=== PATIENT | male | born 1950 | race Caucasian/White ===

== ENCOUNTER 2019-07-30 05:57 | Inpatient (IN) | payer BC ==
[2019-07-22 16:57] VITALS: BMI 33.4
[2019-07-30] MEDS ORDERED: VANCOMYCIN 1,000 MG in DEXTROSE 5%-WATER - 250 ML IVPB ONE (06:32)
[2019-07-30] MEDS ORDERED: TRANEXAMIC ACID 1000 MG/10 ML VIAL IVPUSH ONE (06:32)
[2019-07-30] MEDS ORDERED: CEFAZOLIN 2 GM in DEXTROSE 5%-WATER - 50 ML IVPB ONE (06:32)
[2019-07-30] MEDS ORDERED: BUPIVACAINE HCL/PF 0.5% (5 MG/ML) 30 ML VIAL IJ ONE (07:05)
[2019-07-30] MEDS ORDERED: MIDAZOLAM HCL 2 MG/2 ML SINGLE DOSE VIAL ONE ×2 (07:05→09:05)
--- NOTE | 2019-07-30 07:50 | HP ---
History & Physical Update - History History: No Change - Physical Physical: No Change - Assessment Assessment: No Change - Plan Plan: No Change
[2019-07-30] MEDS ORDERED: PROPOFOL 20 ML ONE ×5 (09:05→12:07)
[2019-07-30] MEDS ORDERED: SUCCINYLCHOLINE CHLORIDE 200 MG/10 ML SYRINGE ONE (09:05)
[2019-07-30] MEDS ORDERED: BUPIVACAINE HCL/PF 0.5% (5MG/ML) 10 ML VIAL ONE (09:06)
[2019-07-30] MEDS ORDERED: ePHEDrine SULFATE 50 MG/1 ML AMPULE ONE (09:21)
[2019-07-30] MEDS ORDERED: METOPROLOL TARTRATE 5 MG/5 ML VIAL ONE (10:38)
[2019-07-30] MEDS ORDERED: ceFAZolin SODIUM 1 GM VIAL ONE (11:44)
[2019-07-30] MEDS ORDERED: BENZOIN TINCTURE SWABSTICK TP ONE (12:25)
--- NOTE | 2019-07-30 12:50 | PN ---
Progress Note (short form) - Note Progress Note: 69M s/p RIGHT total hip replacement POD #0. -Pain control: per anaesthesia team. -DVT PPx: -Chemical: ASA 81mg PO BID x 6 weeks. -Mechanical: SHARAD's, SCD's. -Incentive spirometry q15 min. -PT/OT/Rehab, OOB. -WBAT RLE. -Post-op Ancef x 3 doses. -f/u post-op TOV: 8 hours max. -f/u AM labs. -Diet as tolerated. -Care per medical hospitalist team. -Right hip precautions. -Discharge planning: f/u [facility] [place] [facility] 08/07/2019; call for appointment . -Will follow. Mina Sheppard MD (Orthopaedic Surgery).
--- NOTE | 2019-07-30 12:56 | OP ---
Operative Note - Note: Operative Date: 07/30/19 Pre-Operative Diagnosis: 1. Right hip osteoarthritis. 2. Right hip arthrofibrosis Operation: Right total hip replacement Findings: Extensive kevin-acetabular osteophyte formation Implants: [place]. Cup - Trident II-Triathlon, 48mm. Poly - 32mm, neutral. Stem - Accolade II, 127 deg NSA, #7. Head - 32mm diameter, -4mm length Biolox Delta Ceramic Surgeon: Mina Sheppard Senior Sql Server Dba: Rajwinder Macedo Anesthesiologist/VP DELIVERY: Nir Perez Anesthesia: Spinal Specimens Removed: Right femoral head, osteophytes Estimated Blood Loss (mls): 250 Fluid Volume Replaced (mls): 1,000 Operative Report Dictated: Yes
[2019-07-30] MEDS ORDERED: MAGNESIUM HYDROX 2400MG/30ML ORAL SUSPENSION 30 ML CUP PO PRN (13:02)
[2019-07-30] MEDS ORDERED: MAG HYDROX/AL HYDROX/SIMETH 30 ML UNIT-DOSE CUP PO PRN (13:02)
[2019-07-30] MEDS ORDERED: ONDANSETRON 4 MG/2 ML VIAL IVPUSH PRN ×2 (13:02→13:26)
[2019-07-30] MEDS ORDERED: PROMETHAZINE HCL 25 MG/1 ML VIAL IVPUSH PRN (13:26)
[2019-07-30] MEDS ORDERED: oxyCODONE HCL 5 MG TABLET PO PRN (13:26)
[2019-07-30] MEDS: oxyCODONE HCL 5 MG TABLET PO PRN ×2 (14:05→18:21)
--- NOTE | 2019-07-30 15:25 | OP ---
Date of Operation: 07/30/2019 Surgeon: Mina Sheppard M.D. Speech Instructor: Howie Sheppard M.D., Rajwinder Macedo P.A.-C. Pre-Operative Diagnosis: Primary osteoarthritis right hip. Post-Operative Diagnosis: 1. Primary osteoarthritis right hip, 2. Arthrofibrosis right hip. Surgical Procedure: Right total hip replacement via Direct Suprior approach. Findings: None. Anaesthesia: Spinal, block. Position: Left lateral decubitus. Incision: Direct superior. Estimated Blood Loss: 250cc. Intravenous Fluid: 1.6L crystalloid. Specimens: Right femoral head. Drains: None. Complications: None. Urine output: None. Bacteriology: None. Transfusions: None. Closure: #1 Vicryl, 2-0 Biosyn. Indications: The patient was indicated for a right total hip replacement in order to facilitate improved motion and mobilization, and to prevent the complications associated with a sedentary lifestyle. The patient was identified in the holding area by his armband. A long discussion was held with the patient (in the presence of the patients family) regarding the risks, benefits and alternatives of the above named procedure. Risks include but are not limited to: pain, bleeding, infection, damage to surrounding structures (including nerves, blood vessels, skin, ligaments, tendons and bone), wound complications, failure of hardware/implants/reduction, need for further surgery, blood clots, myocardial infarction, pulmonary embolism , cerebrovascular insult, anaesthesia complications, compartment syndrome, limb loss, limp, loss of function, and . Benefits as mentioned above. Alternatives include no surgery. All questions were answered. The patient understood and agreed to the procedure. Informed consent was obtained, witnessed and verified. The patients correct operative limb - that is the right lower extremity - was marked, and the patient was taken to the operating room after being seen by the anesthesia and nursing staff. Procedure: The patient was brought into the operating room, placed on the OR table and secured with a safety strap. Consent and the operative site were again verified with the patient and nursing and anaesthesia staff. Anaesthesia, IV antibiotics, and TXA were then administered without complication. A time out was done, led by me the attending surgeon. A pre-operative orthpaedic exam revealed 30 degree bilateral flexion contractures of both hips with bilateral external rotation deformities of both hips. The patient was gently turned into the left lateral decubitus position. An axillary roll was not utilized due to patient discomfort when placed. A Stulberg hip positioner with well-padded bolsters was used to secure the patient in the lateral decubitus position. The down arm was placed on a well-padded arm board. The up arm was brought across the patients body and placed on 2 pillows. Foam egg crates were placed under the down knee and ankle, and bony prominences were well padded. The operative site was then prepped and draped in the standard sterile fashion. Time out was again done and the case began. Operation: A standard Direct Superior surgical approach was utilized to access the hip joint. With a #10 blade, a skin incision was taken from the posterior-superior corner of the greater trochanter in a posterior-superior direction. This was approximately 12cm in length. Electrocautery was utilized to carry the deep dissection down to the level of the gluteus dawn fascia. Hemostasis was assured using electrocautery (bipolar and unipolar). The gluteus dawn fascia was incised, and the fibers of gluteus dawn were in line with the trajectory of the incision. This confirmed the accuracy of our planned incision based on palpated landmarks and surface anatomy. A Campuzano elevator was used to split the distal fibers of gluteus dawn, in line with the fibers, just proximal to their insertion into the iliotibial band. Great care was taken not to incise the iliotibial band. Gluteus dawn fibers were split proximally using the Campuzano elevator until reaching the apex of the wound. Again, hemostasis was assured. The kevin-capsular fat pad was exposed utilizing curved handle bar retractors. The kevin-capsular fat pad was excised off the inferior border of the gluteus medius muscle belly, exposing the insertion of the hip short external rotator muscle group. The piriformis and obturator internus tendons were conjoined and, once identified, freed from adhesions to the capsule using a 90-degree clamp. This conjoined tendon was then released from its insertion using electrocautery. The tendon was tagged with a #2 Fiberwire suture and tied to the inferior aspect of the proximal wound apex. The tendon, thus, served as a sling to safely retract and protect the sciatic nerve. With the conjoined tendon reflected away from its insertion, the hip joint capsule was visualized. Electrocautery was used to perform a capsulotomy and synovial joint fluid was aspirated. Next, the superior leaflet of the capsule was elevated using a Campuzano elevator to create separation from the underlying labrum and also to create a plane for later placement of a supra-acetabular retractor. The labrum was excised using electrocautery. The hip was then gently dislocated. A standard femoral neck cut was made using an oscillating saw. A Steinmann pin was delivered into the femoral head using a power drill and the femoral head was then removed. Anterior, inferior, and supra-acetabular retractors were placed to expose the acetabulum. The pulvinar was fibrosed and calcified, entirely consuming the space of the cotyloid fossa. Hemispherical basket reamers were used to prepare the acetabular bone bed. Healthy blushes of bleeding were observed from the reamed cancellous bone bed. Next, a size 48mm Vidhya Trident-II Tritanium cup was impacted into position, achieving excellent press-fit. A size 32mm neutral polyethylene liner was then impacted into the cup. Excellent placement of the polyethylene liner, and excellent press fit of the cup were confirmed. Next, attention was turned to femoral preparation. The anterior and supra-acetabular retractors were removed. The cut femoral neck was then exposed using the inferior acetabular retractor around the calcar, and a straight 90-degree retractor to retract gluteus medius. The box-cutter osteotome was used with a mallet to removed bone from the lateral femoral neck. An opening reamer was delivered by hand to find the femoral canal. A lateralizing reamer was used with power to lateralize the proximal entry into the canal, so as to avoid placing the stem into varus. The femoral bone bed was then prepared using broaches with gentle mallet strikes. The tibia was used as a goniometer with which to dial in approximately 5 degrees of stem anteversion. Trial components were assembled and the hip was reduced. The hip was taken through a full range of motion and proved stable throughout this range of motion, including at the extremes of positions of compromise. All trial femoral components were removed. Another 1g of IV Ancef was administered so that the bone bed would be rich with antibiotic at the time of seating of the femoral implant. A [place] Accolade II (127-degree NSA, high offset) #7 stem was then implanted using gentle mallet strikes, diligently matching the prepared degree of stem anteversion. With the stem fully seated, a 32mm diameter, -4mm length Biolox delta ceramic femoral head was then selected and implanted. The hip was once again reduced, and taken through a full range of motion. Stability was once again assured. Leg length was satisfactory. The wounds were copiously irrigated, as they had been regularly throughout the case so as to keep the retracted tissues wet, and in order to flush out wound debris. The capsule was primarily repaired using #1 Vicryl sutures in simple interrupted fashion. The tagged piriformis tendon was released and tied to the posterior-lateral corner of the greater trochanter. The remaining wound was again irrigated. Hemostasis was assured and the wound was closed primarily using #1 Vicryl sutures. A 2-0 Biosyn suture was used to perform a subcuticular wound closure. A sterile, compressive dressing was applied. The sponge and needle counts were correct at the end of the case and the attending was present and scrubbed throughout the case. The patient was then transferred into a supine position and onto the hospital bed. A standard AP-pelvis x-ray was taken, demonstrating good overall alignment with a well reduced, congruent hip. There was no evidence of subsidence, loosening, or kevin-prosthetic fracture. The patient was then was then transferred to the recovery room without incident/ complications and in stable condition, having tolerated the procedure well. MD BENI [id number] MTDD
[2019-07-30] MEDS: LACTATED RINGERS SOLUTION 1,000 ML IV SCH (16:05)
--- NOTE | 2019-07-30 17:02 | HP ---
CHIEF COMPLAINT: Right hip pain Surgeon: Dr. Sheppard HISTORY OF PRESENT ILLNESS: 69 year-old male with a PMH significant for HTN, HLD, BPH, and right hip OA now s/p right total hip replacement earlier today with Dr. Sheppard. 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 Acidophilus/Pectin, [place] 1 each PO HS 07/22/19 [Acidophilus Probiotic Capsule] Losartan Potassium 100 mg PO DAILY 07/22/19 Multivitamin [Multiple Vitamins] 1 each PO DAILY 07/22/19 Tamsulosin HCl 0.4 mg PO HS 07/22/19 Ubidecarenone [Co Q-10] 100 mg PO HS 07/22/19 Vitamin B Complex/Folic Acid 0.4 mg PO BID 07/30/19 [Super B Maxi Complex Caplet] REVIEW OF SYSTEMS CONSTITUTIONAL: Absent: fever, chills, diaphoresis, generalized weakness, malaise, loss of appetite, weight change HEENT: Absent: rhinorrhea, nasal congestion, throat pain, throat swelling, difficulty swallowing, mouth swelling, ear pain, eye pain, visual changes CARDIOVASCULAR: Absent: chest pain, syncope, palpitations, irregular heart rate, lightheadedness , peripheral edema RESPIRATORY: Absent: cough, shortness of breath, dyspnea with exertion, orthopnea, wheezing, stridor, hemoptysis GASTROINTESTINAL: Absent: abdominal pain, abdominal distension, nausea, vomiting, diarrhea, constipation, melena, hematochezia GENITOURINARY: Absent: dysuria, frequency, urgency, hesitancy, hematuria, flank pain, genital pain MUSCULOSKELETAL: Absent: myalgia, arthralgia, joint swelling, back pain, neck pain SKIN: Absent: rash, itching, pallor HEMATOLOGIC/IMMUNOLOGIC: Absent: easy bleeding, easy bruising, lymphadenopathy, frequent infections ENDOCRINE: Absent: unexplained weight gain, unexplained weight loss, heat intolerance, cold intolerance NEUROLOGIC: Absent: headache, focal weakness or paresthesias, dizziness, unsteady gait, seizure, mental status changes, bladder or bowel incontinence PSYCHIATRIC: Absent: anxiety, depression, suicidal or homicidal ideation, hallucinations. PHYSICAL EXAMINATION Vital Signs - 24 hr 07/30/19 07/30/19 07/30/19 06:57 13:18 13:20 Temperature 97.9 F 97.6 F Pulse Rate 77 99 H 92 H Respiratory 18 13 13 Rate Blood Pressure 131/74 108/63 100/58 L O2 Sat by Pulse 99 99 Oximetry (%) 07/30/19 07/30/19 07/30/19 13:25 13:30 13:45 Temperature 97.6 F Pulse Rate 94 H 94 H 98 H Respiratory 15 15 15 Rate Blood Pressure 111/56 L 111/56 L 113/78 O2 Sat by Pulse 99 99 99 Oximetry (%) 07/30/19 07/30/19 07/30/19 14:00 14:15 14:16 Temperature Pulse Rate 89 89 89 Respiratory 15 15 15 Rate Blood Pressure 110/68 113/68 113/68 O2 Sat by Pulse 99 99 99 Oximetry (%) 07/30/19 15:02 Temperature 97.4 F L Pulse Rate 90 Respiratory 16 Rate Blood Pressure 126/72 O2 Sat by Pulse 100 Oximetry (%) GENERAL: Awake, alert, and fully oriented, in no acute distress. HEAD: Normal with no signs of trauma. EYES: Pupils equal, round and reactive to light, extraocular movements intact, sclera anicteric, conjunctiva clear. No lid lag. LUNGS: Breath sounds equal, clear to auscultation bilaterally. No wheezes, and no crackles. No accessory muscle use. HEART: Regular rate and rhythm, S1 and S2 ABDOMEN: Soft, nontender, not distended, UPPER EXTREMITIES: 2+ pulses, warm, well-perfused. No cyanosis. No clubbing. No peripheral edema. LOWER EXTREMITIES: 2+ pulses, warm, well-perfused. No calf tenderness. No peripheral edema; RLE/RIGHT HIP surgical dressing c/d/i, no surrounding erythema, warmth, or fluctuance, +flex/extend toes, sensory intact NEUROLOGICAL: Cranial nerves II-XII intact. Normal speech. SKIN: Warm, dry, normal turgor, no rashes or lesions noted, normal capillary refill. Current Medications Generic Name Dose Route Start Last Admin Trade Name Freq PRN Reason Stop Dose Admin Acetaminophen 1,000 mg 08/01/19 00:00 Ofirmev Injection - IVPB 08/01/19 18:01 Q6H NAY Al Hydroxide/Mg Hydroxide 30 ml 07/30/19 13:02 Mylanta Oral Suspension - PO Q4H PRN DYSPEPSIA Aspirin 81 mg 07/30/19 22:00 07/30/19 21:34 Asa - PO 81 mg BID NAY Administration Cefazolin Sodium/Dextrose 2 gm 07/31/19 20:00 Ancef 2 Gm Premixed Ivpb - IVPB 08/01/19 08:01 Q6H [facility] Fentanyl 50 mcg 07/31/19 17:35 Sublimaze Injection - IVPUSH [id number] PRN PAIN-PACU ORDER X 4 DOSES ONLY Gabapentin 300 mg 07/31/19 22:00 Neurontin - PO TID NAY Lactated Ringer's 1,000 mls @ 125 mls/hr 07/30/19 13:15 07/30/19 16:05 Lactated Ringers Solution IV Not Given ASDIR NAY Lactobacillus Acidophilus 1 tab 07/30/19 22:00 07/30/19 21:36 Bacid - PO 1 tab HS [facility] Administration Losartan Potassium 100 mg 07/31/19 10:00 07/31/19 10:23 Cozaar - PO 100 mg DAILY NAY Administration Magnesium Hydroxide 30 ml 07/30/19 13:02 Milk Of Magnesia - PO PRN PRN CONSTIPATION Ondansetron HCl 4 mg 07/30/19 13:02 Zofran Injection IVPUSH Q6H PRN NAUSEA Oxycodone HCl 5 mg 07/30/19 13:26 07/31/19 10:23 Roxicodone - PO 5 mg Q3H PRN Administration PAIN LEVEL 1-5 Oxycodone HCl 10 mg 07/30/19 13:26 07/31/19 06:04 Roxicodone - PO 10 mg Q3H PRN Administration PAIN LEVEL 6-10 Oxycodone HCl 10 mg 07/30/19 22:00 07/31/19 10:23 Oxycontin - PO 08/02/19 13:26 10 mg BID NAY Administration Oxycodone HCl 5 mg 07/31/19 17:37 Roxicodone - PO Q3H PRN PAIN LEVEL 1-5 Oxycodone HCl 10 mg 07/31/19 17:37 Roxicodone - PO Q3H PRN PAIN LEVEL 6-10 Oxycodone HCl 10 mg 07/31/19 22:00 Oxycontin - PO 08/03/19 17:37 BID NAY Pantoprazole Sodium 40 mg 07/31/19 10:00 Protonix - PO DAILY NAY Senna/Docusate Sodium 2 tablet 07/30/19 22:00 07/30/19 21:35 Pericolace - PO 2 tablet BID NAY Administration Tamsulosin HCl 0.4 mg 07/30/19 22:00 07/30/19 21:35 Flomax - PO 0.4 mg HS NAY Administration Pre op Hgb 13.1 BUN 15 Cr 1.0 Intra op EBL 250cc Crystalloid 1,000cc cefazolin, Vanc Assessment & Plan 69 year-old male with a PMH significant for HTN, HLD, BPH, and right hip OA now s/p right total hip replacement earlier today with Dr. Sheppard. --POD #0 --perioperative antibiotics per surgery --pain management per surgery --ASA 81mg BID --protonix --bowel regimen --incentive spirometry --voiding freely post-op Hypertension --continue losartan Hyperlipidemia --not on statin therapy BPH --continue tamsulosin FEN Fluids: LR@125mL/hr Electrolytes: replete as indicated Nutrition: regular diet DVT prophylaxis: OOB, ambulation, SCDs, TEDs, ASA 81mg BID for 6 weeks Physical therapy Dispo: continues to require inpatient care. Full code. Visit type - Emergency Visit Emergency Visit: No - New Patient This patient is new to me today: Yes Date on this admission: 08/01/19 - Critical Care Critical Care patient: No
[2019-07-30] MEDS: CEFAZOLIN 2 GM/D5W 2 GM/50 ML ML IVPB SCH (18:21)
[2019-07-30] MEDS: ASPIRIN 81 MG CHEWABLE TABLETS PO SCH (21:34)
[2019-07-30] MEDS: SENNOSIDES/DOCUSATE COMBO (SENNA PLUS) TABLET (UD) PO SCH (21:35)
[2019-07-30] MEDS: TAMSULOSIN HCL 0.4 MG CAP PO SCH (21:35)
[2019-07-30] MEDS: oxyCODONE HCL 10 MG SUSTAINED ACTING TABLET PO SCH (21:35)
[2019-07-30] MEDS: LACTOBACILLUS ACIDOPHILUS 1 TABLET PO SCH (21:36)
[2019-07-30] MEDS ORDERED: [UNRECOGNIZED DRUG - OTHER] PO SCH (22:00)
--- NOTE | 2019-07-30 22:18 | PN ---
Progress Note (short form) - Note Progress Note: 69M s/p RIGHT total hip replacement POD #0. Post-operative AP right hip x-ray demonstrates rotation and mal-position of acetabular component. -NPO, IVF at midnight. -Plan to return to OR tomorrow for revision right total hip replacement. -Risks, benefits, and alternatives discussed with, and understood by, patient and his who are in full agreement with the above-listed plan. Mina Sheppard MD (Orthopaedic Surgery).
[2019-07-31] MEDS: CEFAZOLIN 2 GM/D5W 2 GM/50 ML ML IVPB SCH ×2 (00:20→06:03)
[2019-07-31] MEDS: oxyCODONE HCL 5 MG TABLET PO PRN ×2 (00:20→06:04)
[2019-07-31 07:49] LABS: HEMATOCRIT 39.2 % (35.4-49); HEMOGLOBIN 13.1 GM/dl (11.7-16.9); MCH 29.3 pg (25.7-33.7); MCHC 33.4 g/dl (32.0-35.9); MEAN CELL VOLUME 87.7 fl (80-96); MEAN PLT VOLUME 8.1 fl (7.5-11.1); PLATELET COUNT 271 K/MM3 (134-434); RBC 4.47 M/mm3 (4.00-5.60); RDW 12.9 % (11.9-15.9); WHITE BLOOD COUNT 8.8 K/mm3 (4.0-10.8)
[2019-07-31 07:56] LABS: CALCIUM 8.5 mg/dl (8.5-10); MAGNESIUM 1.8 mg/dL (1.8-2.4); POTASSIUM 4.2 mmol/L (3.5-5.1)
[2019-07-31] MEDS ORDERED: PATIENT'S OWN MEDICATION (NON-FORMULARY) (Losartan Potassium [Losartan Potassium] 100 MG) PO SCH (10:00)
[2019-07-31] MEDS: LOSARTAN POTASSIUM 50 MG TABLET (FP) PO SCH (10:23)
[2019-07-31] MEDS: oxyCODONE HCL 10 MG SUSTAINED ACTING TABLET PO SCH ×3 (10:23→21:55)
--- NOTE | 2019-07-31 10:50 | PN ---
Progress Note (short form) - Note Progress Note: Anesthesia post op note, POD#1, S/P right FCO, under spinal. Vss, Temp:100.4. Can not move his right leg , due to pain. X-ray showed rotation and mal-position of acetabular component. Going back to the OR today. No apparent post anesthesia complications.
[2019-07-31] MEDS ORDERED: PROPOFOL 20 ML ONE ×3 (11:41)
[2019-07-31] MEDS ORDERED: SUCCINYLCHOLINE CHLORIDE 200 MG/10 ML SYRINGE ONE (11:42)
[2019-07-31] MEDS ORDERED: MIDAZOLAM HCL 2 MG/2 ML SINGLE DOSE VIAL ONE (11:42)
[2019-07-31] MEDS ORDERED: BUPIVACAINE HCL/PF 0.5% (5MG/ML) 10 ML VIAL ONE (12:04)
[2019-07-31] MEDS ORDERED: CALCIUM CHLORIDE 1 GM/10 ML *DISP.SYRIN ONE (14:23)
[2019-07-31] MEDS ORDERED: ePHEDrine SULFATE 50 MG/1 ML AMPULE ONE (14:30)
[2019-07-31] MEDS ORDERED: PHENYLEPHRINE HCL 10 MG/1 ML SINGLE DOSE VIAL ONE (15:43)
[2019-07-31] MEDS ORDERED: VANCOMYCIN 1,000 MG VIAL (RESTRICTED TO ID ONLY) ONE (15:43)
[2019-07-31] MEDS ORDERED: METOPROLOL TARTRATE 5 MG/5 ML VIAL ONE (15:43)
[2019-07-31] MEDS ORDERED: ceFAZolin SODIUM 1 GM VIAL ONE (15:43)
[2019-07-31] MEDS ORDERED: SODIUM CHLORIDE 0.9% P/F 10 ML VIAL IJ ONE (15:43)
[2019-07-31] MEDS ORDERED: ACETAMINOPHEN INJECTION 100 ML IVPB ONE (17:22)
[2019-07-31] MEDS ORDERED: ACETAMINOPHEN 1000 MG/100 ML VIAL (NON FORMULARY) IVPB ONE (17:37)
--- NOTE | 2019-07-31 17:49 | PN ---
Progress Note (short form) - Note Progress Note: 69M s/p RIGHT total hip replacement POD #0. Pain well controlled if patient immobilized; R hip pain worse with attempted R hip mobilization. Pt. denies overnight history of headaches, chest pain, shortness of breath, chills, & sweats. (+) Voiding; (+) Flatus; (-) BM. Has not gotten out of bed. All labs and vitals reviewed. PE: AAO x 3, NAD. R-Hip: Hip abduction brace intact & in place. Dressing C/D/I. RLE M: HF/HE/KF/KE/ADF intact; ADF/GTE diminished, very weak. RLE S: L2-L5 2/2; S1 1/2 (localized to sole of foot). AP Pelvis X-Ray: Failure and migration of right hip acetabular component. 69M s/p RIGHT total hip replacement POD #0. -NPO, IVF. -Plan to return to OR today for revision R FCO. -Despite sinus tachycardia (120's-130's), no leukocytosis, no concerning pyrexia , no clinical signs of sepsis; after lengthy discussion with anesthesiology team , decision made to proceed with procedure. -Offload heals with rolled towels under ankles to avoid heel ulcers/pressure sores. -Hip abduction pillow straps LOOSE, not tight. -Pain control. -DVT PPx: -Chemical: ASA 81mg PO BID x 6 weeks. -Mechanical: SHARAD's, SCD's. -Incentive spirometry q15 min. -PT/OT/Rehab, OOB. -WBAT RLE. -f/u all labs. -Will follow. Mina Sheppard MD (Orthopaedic Surgery).
[2019-07-31] MEDS ORDERED: ceFAZolin 2 GRAM PREMIX BAG IVPB SCH (18:05)
--- NOTE | 2019-07-31 18:10 | PN ---
Progress Note (short form) - Note Progress Note: 69M s/p REVISION RIGHT total hip replacement POD #0. -Pain control: per anaesthesia team. -DVT PPx: -Chemical: ASA 81mg PO BID x 6 weeks. -Mechanical: SHARAD's, SCD's. -Incentive spirometry q15 min. -PT/OT/Rehab, OOB. -WBAT RLE. -Post-op Ancef x 3 doses. -Ellis care. -f/u AM labs. -Diet as tolerated. -Care per medical hospitalist team. -Right hip precautions. -Discharge planning: f/u [facility] [place] [facility] 08/07/2019; call for appointment . -Will follow. Mina Sheppard MD (Orthopaedic Surgery).
[2019-07-31 18:12] LABS: HEMATOCRIT 32.4 % (35.4-49); HEMOGLOBIN 10.8 GM/dl (11.7-16.9); MCH 29.8 pg (25.7-33.7); MCHC 33.3 g/dl (32.0-35.9); MEAN CELL VOLUME 89.2 fl (80-96); MEAN PLT VOLUME 7.8 fl (7.5-11.1); PLATELET COUNT 237 K/MM3 (134-434); RBC 3.64 M/mm3 (4.00-5.60); RDW 13.1 % (11.9-15.9)
[2019-07-31] MEDS ORDERED: ACETAMINOPHEN 1000 MG/100 ML VIAL (NON FORMULARY) IVPB SCH (18:15)
[2019-07-31] MEDS ORDERED: oxyCODONE HCL 5 MG TABLET ONE (18:23)
--- NOTE | 2019-07-31 18:37 | OP ---
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 Operation: Revision right total hip replacement (all components) Findings: Extensive kevin-acetabular osteophytes. Implants: [place]. Cup - Trident II-Tritanium, 56mm. Poly - 36mm, neutral. Stem - Accolade II, 127 deg NSA, #7. Head - 36mm diameter, -5mm length Biolox Delta Ceramic Post-Operative Diagnosis: Same as Pre-op Surgeon: Mina Sheppard Franchise Development Manager: Maxwell Hassan Anesthesiologist/SENIOR INTERACTION DESIGNER: Nir Perez Anesthesia: Spinal Specimens Removed: Hardware, osteophytes Estimated Blood Loss (mls): 50 Fluid Volume Replaced (mls): 3,000 (Crystalloid) Operative Report Dictated: Yes
--- NOTE | 2019-07-31 19:26 | OP ---
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 Extensive osteoarthritis right hip. PROCEDURE PERFORMED: Full 2 component 1 stage revision right total hip replacement by direct superior approach. ESTIMATED BLOOD LOSS: 50 mL old hematoma. INTRAVENOUS FLUIDS: 3 L crystalloid Mina Sheppard MD [id number]
--- NOTE | 2019-07-31 20:01 | PN ---
Physical Exam: Twice went to patient's room, he was off the floor in the OR. Not seen or examined today. Laboratory Results - last 24 hr 07/31/19 07/31/19 07/31/19 07:30 07:30 17:45 WBC 8.8 10.0 RBC 4.47 3.64 L Hgb 13.1 10.8 L Hct 39.2 32.4 L D MCV 87.7 89.2 MCH 29.3 29.8 MCHC 33.4 33.3 RDW 12.9 13.1 Plt Count 271 237 MPV 8.1 7.8 Sodium 135 L Potassium 4.2 Chloride 100 Carbon Dioxide 28 Anion Gap 7 L BUN 15.0 Creatinine 1.0 Est GFR (CKD-EPI)AfAm 88.61 Est GFR (CKD-EPI)NonAf 76.45 Random Glucose 126 H Calcium 8.5 Magnesium 1.8 Active Medications Generic Name Dose Route Start Last Admin Trade Name Freq PRN Reason Stop Dose Admin Acetaminophen 1,000 mg 08/01/19 00:00 Ofirmev Injection - IVPB 08/01/19 18:01 Q6H NAY Al Hydroxide/Mg Hydroxide 30 ml 07/30/19 13:02 Mylanta Oral Suspension - PO Q4H PRN DYSPEPSIA Aspirin 81 mg 07/30/19 22:00 07/30/19 21:34 Asa - PO 81 mg BID NAY Administration Cefazolin Sodium/Dextrose 2 gm 07/31/19 20:00 Ancef 2 Gm Premixed Ivpb - IVPB 08/01/19 08:01 Q6H NAY Fentanyl 50 mcg 07/31/19 17:35 Sublimaze Injection - IVPUSH [id number] PRN PAIN-PACU ORDER X 4 DOSES ONLY Gabapentin 300 mg 07/31/19 22:00 Neurontin - PO TID NAY Lactated Ringer's 1,000 mls @ 125 mls/hr 07/30/19 13:15 07/30/19 16:05 Lactated Ringers Solution IV Not Given ASDIR NAY Lactobacillus Acidophilus 1 tab 07/30/19 22:00 07/30/19 21:36 Bacid - PO 1 tab HS NAY Administration Losartan Potassium 100 mg 07/31/19 10:00 07/31/19 10:23 Cozaar - PO 100 mg DAILY NAY Administration Magnesium Hydroxide 30 ml 07/30/19 13:02 Milk Of Magnesia - PO PRN PRN CONSTIPATION Ondansetron HCl 4 mg 07/30/19 13:02 Zofran Injection IVPUSH Q6H PRN NAUSEA Oxycodone HCl 5 mg 07/30/19 13:26 07/31/19 10:23 Roxicodone - PO 5 mg Q3H PRN Administration PAIN LEVEL 1-5 Oxycodone HCl 10 mg 07/30/19 13:26 07/31/19 06:04 Roxicodone - PO 10 mg Q3H PRN Administration PAIN LEVEL 6-10 Oxycodone HCl 10 mg 07/30/19 22:00 07/31/19 10:23 Oxycontin - PO 08/02/19 13:26 10 mg BID NAY Administration Oxycodone HCl 5 mg 07/31/19 17:37 Roxicodone - PO Q3H PRN PAIN LEVEL 1-5 Oxycodone HCl 10 mg 07/31/19 17:37 Roxicodone - PO Q3H PRN PAIN LEVEL 6-10 Oxycodone HCl 10 mg 07/31/19 22:00 Oxycontin - PO 08/03/19 17:37 BID NAY Pantoprazole Sodium 40 mg 07/31/19 10:00 Protonix - PO DAILY NAY Senna/Docusate Sodium 2 tablet 07/30/19 22:00 07/30/19 21:35 Pericolace - PO 2 tablet BID NAY Administration Tamsulosin HCl 0.4 mg 07/30/19 22:00 07/30/19 21:35 Flomax - PO 0.4 mg HS NAY Administration Assessment & Plan Right total hip replacement on 07/30. Post op film showed misplacement of the acetabular replacement component. Patient returned to the OR today for a full 2- component, 1-stage revision right total hip replacement by direct supper approach. 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
[2019-07-31] MEDS: ceFAZolin 2 GRAM PREMIX BAG IVPB SCH (20:28)
[2019-07-31] MEDS: ASPIRIN 81 MG CHEWABLE TABLETS PO SCH (21:47)
[2019-07-31] MEDS: TAMSULOSIN HCL 0.4 MG CAP PO SCH (21:48)
[2019-07-31] MEDS: SENNOSIDES/DOCUSATE COMBO (SENNA PLUS) TABLET (UD) PO SCH (21:48)
[2019-07-31] MEDS: GABAPENTIN 300 MG CAPSULE (FP) PO SCH (21:48)
[2019-07-31] MEDS: LACTOBACILLUS ACIDOPHILUS 1 TABLET PO SCH (21:51)
[2019-08-01] MEDS: ACETAMINOPHEN 1000 MG/100 ML VIAL (NON FORMULARY) IVPB SCH ×4 (00:08→18:44)
[2019-08-01] MEDS: oxyCODONE HCL 5 MG TABLET PO PRN (02:11)
[2019-08-01] MEDS: ceFAZolin 2 GRAM PREMIX BAG IVPB SCH ×2 (02:11→08:15)
[2019-08-01] MEDS: GABAPENTIN 300 MG CAPSULE (FP) PO SCH ×3 (06:06→21:31)
[2019-08-01] MEDS: LACTATED RINGERS SOLUTION 1,000 ML IV SCH (06:06)
--- NOTE | 2019-08-01 07:01 | SURG ---
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 Procedure: Revision right total hip replacement (all components) I was present for the entirety of the operative procedure. For further detail, please refer to operative report. Visit type - Case Type Case Type: Scheduled - New patient This patient is new to me today: Yes Date on this admission: 08/01/19
--- NOTE | 2019-08-01 07:04 | PN ---
Progress Note (short form) - Note Progress Note: ORTHOPAEDIC SURGERY POD #2 s/p Rt FCO POD #1 s/p Revision right total hip replacement (all components) Alert. Sitting up in bed. at bedside. Patient was taken back to OR yesterday secondary to failed right total hip replacement with acetabular component migration. Hip abductor pillow in place. Moving his toes but still c/o inability to flex foot. Sensory intact. Denies n/v/f/c, CP, palpitations, SOB, FRANCIS, hemoptysis. Last Vital Signs Temp Pulse Resp BP Pulse Ox 98.4 F 125 20 112/51 L 98 // 06:00 08/01/19 06:00 08/01/19 06:00 08/01/19 06:00 08/01/19 06:00 OUTPUT 07/31/19 08/01/19 22:48 06:00 Turner 300 800 PE Gen: nad ABD: soft. nt. nd RLE: Jumpstart dressing c/d/i. Moves his toes but unable to dorsiflex foot. Sensory intact. SCDs bilat. No calf tenderness, edema/swelling Problem List - Problems (1) Degenerative joint disease of right hip Assessment/Plan: 69 yo male was taken back to OR POD #1 secondary to failed right total hip replacement with acetabular component migration. Now POD #1 s/p Revision of all components. Pain control DVT PPX: ASA 81 mg PO BID x 6 weeks TEDs & SCDs Incentive spirometer OOB to chair Mobilize with PT WBAT RLE Posterior Rt hip precautions Hip abductor pillow Monitor turner output --> turner still appears concentrated f/u CBC & BMP Patient remains tachycardic (asymptomatic). Will try 1L fluid bolus Above plan discussed with Dr. Mina Sheppard and agrees. Code(s): M16.11 - UNILATERAL PRIMARY OSTEOARTHRITIS, RIGHT HIP (2) Tachycardia determined by examination of pulse Code(s): R00.0 - TACHYCARDIA, UNSPECIFIED (3) HTN (hypertension) Code(s): I10 - ESSENTIAL (PRIMARY) HYPERTENSION
[2019-08-01 07:30] LABS: HEMATOCRIT 29.8 % (35.4-49); HEMOGLOBIN 9.8 GM/dl (11.7-16.9); MCH 29.1 pg (25.7-33.7); PLATELET COUNT 221 K/MM3 (134-434); RBC 3.38 M/mm3 (4.00-5.60); RDW 12.9 % (11.9-15.9); WHITE BLOOD COUNT 10.2 K/mm3 (4.0-10.8)
[2019-08-01] MEDS: ASPIRIN 81 MG CHEWABLE TABLETS PO SCH ×2 (10:45→21:31)
[2019-08-01] MEDS: oxyCODONE HCL 10 MG SUSTAINED ACTING TABLET PO SCH ×2 (10:46→21:31)
[2019-08-01] MEDS: PANTOPRAZOLE 40 MG TABLET (FP) PO SCH (10:46)
[2019-08-01] MEDS: LOSARTAN POTASSIUM 50 MG TABLET (FP) PO SCH (10:47)
[2019-08-01] MEDS: SENNOSIDES/DOCUSATE COMBO (SENNA PLUS) TABLET (UD) PO SCH ×2 (10:47→21:31)
[2019-08-01] MEDS ORDERED: SODIUM CHLORIDE 1,000 ML IV STA (11:24)
--- NOTE | 2019-08-01 11:26 | PN ---
Physical Exam: SUBJECTIVE: Patient seen and examined OBJECTIVE: Vital Signs Period Temp Pulse Resp BP Sys/Hills Pulse Ox Last 24 Hr 97.9 F-101.5 F 86-125 17-23 92-149/48-85 96-100 GENERAL: Awake, alert, and fully oriented, in no acute distress. LUNGS: Breath sounds equal, clear to auscultation bilaterally. No wheezes, and no crackles. No accessory muscle use. HEART: Regular rate and rhythm, S1 and S2 ABDOMEN: Soft, nontender, not distended, UPPER EXTREMITIES: 2+ pulses, warm, well-perfused. No cyanosis. No clubbing. No peripheral edema. LOWER EXTREMITIES: 2+ pulses, warm, well-perfused. No calf tenderness. No peripheral edema; RLE/RIGHT HIP surgical dressing c/d/i, no surrounding erythema, warmth, or fluctuance, +flex/extend toes, sensory intact; no calf tenderness NEUROLOGICAL: Cranial nerves II-XII intact. Normal speech. SKIN: Warm, dry, normal turgor, no rashes or lesions noted, normal capillary refill. Laboratory Results - last 24 hr 07/31/19 08/01/19 17:45 07:15 WBC 10.0 10.2 RBC 3.64 L 3.38 L Hgb 10.8 L 9.8 L Hct 32.4 L D 29.8 L MCV 89.2 88.0 MCH 29.8 29.1 MCHC 33.3 33.0 RDW 13.1 12.9 Plt Count 237 221 MPV 7.8 8.0 Active Medications Generic Name Dose Route Start Last Admin Trade Name Freq PRN Reason Stop Dose Admin Acetaminophen 1,000 mg 08/01/19 00:00 08/01/19 06:06 Ofirmev Injection - IVPB 08/01/19 18:01 1,000 mg Q6H NAY Administration Al Hydroxide/Mg Hydroxide 30 ml 07/30/19 13:02 Mylanta Oral Suspension - PO Q4H PRN DYSPEPSIA Aspirin 81 mg 07/30/19 22:00 08/01/19 10:45 Asa - PO 81 mg BID NAY Administration Fentanyl 50 mcg 07/31/19 17:35 Sublimaze Injection - IVPUSH [id number] PRN PAIN-PACU ORDER X 4 DOSES ONLY Gabapentin 300 mg 07/31/19 22:00 08/01/19 06:06 Neurontin - PO 300 mg TID NAY Administration Lactated Ringer's 1,000 mls @ 125 mls/hr 07/30/19 13:15 08/01/19 06:06 Lactated Ringers Solution IV 125 mls/hr ASDIR NAY Administration Lactobacillus Acidophilus 1 tab 07/30/19 22:00 07/31/19 21:51 Bacid - PO 1 tab HS NAY Administration Losartan Potassium 100 mg 07/31/19 10:00 08/01/19 10:47 Cozaar - PO 100 mg DAILY NAY Administration Magnesium Hydroxide 30 ml 07/30/19 13:02 Milk Of Magnesia - PO PRN PRN CONSTIPATION Ondansetron HCl 4 mg 07/30/19 13:02 07/31/19 22:27 Zofran Injection IVPUSH 4 mg Q6H PRN Administration NAUSEA Oxycodone HCl 5 mg 07/31/19 17:37 Roxicodone - PO Q3H PRN PAIN LEVEL 1-5 Oxycodone HCl 10 mg 07/31/19 17:37 08/01/19 02:11 Roxicodone - PO 10 mg Q3H PRN Administration PAIN LEVEL 6-10 Oxycodone HCl 10 mg 07/31/19 22:00 08/01/19 10:46 Oxycontin - PO 08/03/19 17:37 10 mg BID NAY Administration Pantoprazole Sodium 40 mg 07/31/19 10:00 08/01/19 10:46 Protonix - PO 40 mg DAILY NAY Administration Senna/Docusate Sodium 2 tablet 07/30/19 22:00 08/01/19 10:47 Pericolace - PO 2 tablet BID NAY Administration Tamsulosin HCl 0.4 mg 07/30/19 22:00 07/31/19 21:48 Flomax - PO 0.4 mg HS NAY Administration ASSESSMENT/PLAN 69 year-old male with a PMH significant for HTN, HLD, BPH, and right hip OA, s/ p right total hip replacement on 07/30, post-op xray showed acetabular component misplaced, s/p revision right total hip on 07/31. --POD #2 from initial procedure --perioperative antibiotics per surgery --pain management per surgery --ASA 81mg BID --protonix --bowel regimen --incentive spirometry Hypertension --has been mildly hypotensive and tachcycardic likely from low volume state; very little blood loss reported in either procedure and pain is well-managed --hold losartan --volus 1L NS, then hourly NS --continue losartan Hyperlipidemia --not on statin therapy BPH --continue tamsulosin FEN Fluids: NS@125mL/hr Electrolytes: replete as indicated Nutrition: regular diet DVT prophylaxis: OOB, ambulation, SCDs, TEDs, ASA 81mg BID for 6 weeks Physical therapy Dispo: continues to require inpatient care. Full code. Visit type - Emergency Visit Emergency Visit: No - New Patient This patient is new to me today: No - Critical Care Critical Care patient: No
--- NOTE | 2019-08-01 12:31 | PN ---
Progress Note (short form) - Note Progress Note: S: Pt. sitting in chair, eating lunch. Comfotable. Ambulating with assist. O: VAS 4/10 pain Last Vital Signs Temp Pulse Resp BP Pulse Ox 98 F 86 19 149/68 98 08/01/19 10:05 08/01/19 10:05 08/01/19 10:05 08/01/19 10:05 08/01/19 09:00 A/P: POD #1 s/p Right hip revision arthroplasty 1. pain well controlled. continued pain meds as ordered 2. No apparent anesthesia complications
--- NOTE | 2019-08-01 13:54 | EKG ---
Test Reason : Blood Pressure : / mmHG Vent. Rate : 121 BPM Atrial Rate : 121 BPM P-R Int : 140 ms QRS Dur : 084 ms QT Int : 294 ms P-R-T Axes : 027 029 009 degrees QTc Int : 417 ms SINUS TACHYCARDIA POSSIBLE INFERIOR INFARCT (CITED ON OR BEFORE 31-JUL-2019) ABNORMAL ECG WHEN COMPARED WITH ECG OF 31-JUL-2019 13:20, NO SIGNIFICANT CHANGE WAS FOUND Confirmed by CHRISTIANO BROCK MD ([id number]) on 08/01/2019 1:54:09 PM Referred By: Mina Sheppard Confirmed By:CHRISTIANO BROCK MD
--- NOTE | 2019-08-01 13:55 | EKG ---
Test Reason : Blood Pressure : / mmHG Vent. Rate : 120 BPM Atrial Rate : 120 BPM P-R Int : 140 ms QRS Dur : 086 ms QT Int : 292 ms P-R-T Axes : 028 017 004 degrees QTc Int : 412 ms POOR DATA QUALITY, INTERPRETATION MAY BE ADVERSELY AFFECTED SINUS TACHYCARDIA INFERIOR INFARCT , AGE UNDETERMINED ABNORMAL ECG NO PREVIOUS ECGS AVAILABLE Confirmed by CHRISTIANO BROCK MD ([id number]) on 08/01/2019 1:55:20 PM Referred By: Mina Sheppard Confirmed By:CHRISTIANO BROCK MD
[2019-08-01] MEDS ORDERED: LACTATED RINGERS SOLUTION 1,000 ML IV SCH ×2 (13:59→14:31)
--- NOTE | 2019-08-01 14:48 | PN ---
Progress Note (short form) - Note Progress Note: 69M s/p REVISION RIGHT total hip replacement POD #1. (+) RLE foot drop identified after index primary hip replacement. Pain well controlled. No acute events overnight. Pt. denies overnight history of headaches, chest pain, shortness of breath, nausea, vomiting, chills, & sweats. (+) Ellis; (+) Flatus; (-) BM. All labs and vitals reviewed. PE: AAO x 3, NAD. R-Hip: Hip abduction pillow intact & in place. Dressing C/D/I. RLE M: HF/HE/KF/KE/ADF intact; ADF/GTE diminished, weak. RLE S: Very mildly diminished sensation in distribution of superficial peroneal nerve and tibial nerve at the level of the ankle and foot. Markedly diminished (but present) sensation in the 1st dorsal webbed space of the right foot. 69M s/p REVISION RIGHT total hip replacement POD #1. -Rolled towel under right thigh (above knee) to relax Sciatic nerve. -Hip abduction pillow straps LOOSE, not tight. -Offload heals with rolled towels under ankles to avoid heel ulcers/pressure sores. -Will order RLE AFO splint for foot drop to prevent equinus contracture of ankle. -Pain control: per anaesthesia team. -DVT PPx: -Chemical: ASA 81mg PO BID x 6 weeks. -Mechanical: SHARAD's, SCD's. -Diet. -Continue IV fluids; patient's urine remains concentrated, likely reflecting dehydration. -Incentive spirometry q15 min. -PT/OT/Rehab, OOB. -WBAT RLE. -Post-op Ancef x 3 doses. -Continue neurontin. -Ellis care. -f/u AM labs. -Diet as tolerated. -Care per medical hospitalist team. -Right hip precautions. -Discharge planning: f/u [facility] [place] [facility] 08/07/2019; call for appointment . -Will follow. Mina Sheppard MD (Orthopaedic Surgery).
[2019-08-01] MEDS: SODIUM CHLORIDE 1,000 ML IV SCH (16:35)
[2019-08-01] MEDS: TAMSULOSIN HCL 0.4 MG CAP PO SCH (21:31)
[2019-08-01] MEDS: LACTOBACILLUS ACIDOPHILUS 1 TABLET PO SCH (21:31)
[2019-08-02] MEDS: oxyCODONE HCL 5 MG TABLET PO PRN (06:08)
[2019-08-02] MEDS: GABAPENTIN 300 MG CAPSULE (FP) PO SCH ×3 (06:09→21:08)
--- NOTE | 2019-08-02 09:13 | PN ---
Progress Note, Physician Chief Complaint: C/O Rt Hip pain History of Present Illness: 69 year-old male with a PMH significant for HTN, HLD, BPH, and right hip OA, s/ p right total hip replacement on 07/30, post-op xray showed acetabular component misplaced, s/p revision right total hip on 07/31. POD 3rd - Current Medication List Current Medications: Active Medications Al Hydroxide/Mg Hydroxide (Mylanta Oral Suspension -) 30 ml PO Q4H PRN PRN Reason: DYSPEPSIA Aspirin (Asa -) 81 mg PO BID [facility] Last Admin: 08/01/19 21:31 Dose: 81 mg Gabapentin (Neurontin -) 300 mg PO TID [facility] Last Admin: 08/02/19 06:09 Dose: 300 mg Sodium Chloride (Normal Saline -) 1,000 mls @ 100 mls/hr IV ASDIR [facility] Last Admin: 08/01/19 16:35 Dose: 100 mls/hr Lactobacillus Acidophilus (Bacid -) 1 tab PO HS [facility] Last Admin: 08/01/19 21:31 Dose: 1 tab Losartan Potassium (Cozaar -) 100 mg PO DAILY [facility] Last Admin: 08/01/19 10:47 Dose: 100 mg Magnesium Hydroxide (Milk Of Magnesia -) 30 ml PO PRN PRN PRN Reason: CONSTIPATION Ondansetron HCl (Zofran Injection) 4 mg IVPUSH Q6H PRN PRN Reason: NAUSEA Last Admin: 07/31/19 22:27 Dose: 4 mg Oxycodone HCl (Roxicodone -) 5 mg PO Q3H PRN PRN Reason: PAIN LEVEL 1-5 Last Admin: 08/02/19 06:08 Dose: 5 mg Oxycodone HCl (Roxicodone -) 10 mg PO Q3H PRN PRN Reason: PAIN LEVEL 6-10 Last Admin: 08/01/19 02:11 Dose: 10 mg Oxycodone HCl (Oxycontin -) 10 mg PO BID [facility] Stop: 08/03/19 17:37 Last Admin: 08/01/19 21:31 Dose: 10 mg Pantoprazole Sodium (Protonix -) 40 mg PO DAILY [facility] Last Admin: 08/01/19 10:46 Dose: 40 mg Senna/Docusate Sodium (Pericolace -) 2 tablet PO BID [facility] Last Admin: 08/01/19 21:31 Dose: 2 tablet Tamsulosin HCl (Flomax -) 0.4 mg PO HS NAY Last Admin: 08/01/19 21:31 Dose: 0.4 mg - Objective Vital Signs: Vital Signs Temperature 100.7 F H 08/02/19 08:47 Pulse Rate 117 H 08/02/19 08:47 Respiratory Rate 18 08/02/19 08:47 Blood Pressure 115/51 L 08/02/19 08:47 O2 Sat by Pulse Oximetry (%) 98 08/02/19 08:47 Elderly man not in distress c/o Rt Hip pain HEENT: Mm moist, no anaemia, PERRLA EOMI NECK : No JVd No Bruit CHEST: CTA B/L CVS; S1AS2 R no m/g/r ABD: No distention, non tender Bs + EXT: Rt Hip S/P surgery LE edema + ORDER TAKER: AOX3 non focal Labs: CBC, BMP 08/01/19 07:15 07/31/19 07:30 - ....Imaging Ultrasound: Report Reviewed (Rt AVERY no DVT) Problem List - Problems (1) HTN (hypertension) Assessment/Plan: Well controlled on Losartan Code(s): I10 - ESSENTIAL (PRIMARY) HYPERTENSION (2) Tachycardia determined by examination of pulse Assessment/Plan: Post OP low garde fever, pain , drop in H/H from 13.2 to 9.8 serial H/H no clinical sign of PE or CHF LE Doppler is -ve for DVT denies SOB, chest pain F/U CBC and close observation at present no indication of transfusion Code(s): R00.0 - TACHYCARDIA, UNSPECIFIED (3) Degenerative joint disease of right hip Assessment/Plan: S/P THR on 07/30 management as per operating team. Code(s): M16.11 - UNILATERAL PRIMARY OSTEOARTHRITIS, RIGHT HIP (4) Postoperative anemia Assessment/Plan: further drop in H/H type and screen Hb 8.5 Ortho recommended 2 units PRBC. Code(s): D64.9 - ANEMIA, UNSPECIFIED
[2019-08-02] MEDS: ASPIRIN 81 MG CHEWABLE TABLETS PO SCH ×3 (09:15→21:08)
[2019-08-02] MEDS: ACETAMINOPHEN 325 MG TABLET (FP) PO PRN ×3 (09:15→17:22)
[2019-08-02] MEDS: PANTOPRAZOLE 40 MG TABLET (FP) PO SCH ×2 (09:16→09:59)
[2019-08-02] MEDS: oxyCODONE HCL 10 MG SUSTAINED ACTING TABLET PO SCH (09:16)
[2019-08-02] MEDS: SENNOSIDES/DOCUSATE COMBO (SENNA PLUS) TABLET (UD) PO SCH ×2 (09:16→09:59)
[2019-08-02] MEDS: LACTATED RINGERS SOLUTION 1,000 ML IV SCH (10:00)
[2019-08-02 10:13] LABS: BASO % 0.2 % (0-2.0); EOS % 0.6 % (0-4.5); HEMATOCRIT 25.1 % (35.4-49); HEMOGLOBIN 8.5 GM/dl (11.7-16.9); LYMPH % 9.2 % (8-40); MCH 29.8 pg (25.7-33.7); MCHC 33.8 g/dl (32.0-35.9); MEAN CELL VOLUME 88.2 fl (80-96); MEAN PLT VOLUME 7.7 fl (7.5-11.1); MONO % 5.8 % (3.8-10.2); NEUT % 84.2 % (42.8-82.8); PLATELET COUNT 246 K/MM3 (134-434); RBC 2.84 M/mm3 (4.00-5.60); WHITE BLOOD COUNT 7.8 K/mm3 (4.0-10.8)
[2019-08-02 10:16] LABS: CALCIUM 7.8 mg/dl (8.5-10); CREATININE 0.8 mg/dl (0.55-1.3); POTASSIUM 3.8 mmol/L (3.5-5.1)
--- NOTE | 2019-08-02 10:31 | PN ---
Progress Note (short form) - Note Progress Note: 69M s/p REVISION RIGHT total hip replacement POD #2. (+) RLE foot drop identified after index primary hip replacement. Pain well controlled. No acute events overnight. Pt. denies overnight history of headaches, chest pain, shortness of breath, nausea, vomiting, chills, & sweats. (+) Voiding; (+) Flatus; (-) BM. All labs and vitals reviewed. H/H: 8.5/25.1. PE: AAO x 3, NAD. R-Hip: Hip abduction pillow intact & in place. Dressing C/D/I. RLE M: HF/HE/KF/KE/ADF intact; ADF/GTE diminished, weak. RLE S: -Femoral nerve distribution: intact. -Superficial peroneal nerve distribution: Diminished, but present. -Deep peroneal nerve distribution: Minimal. -Tibial nerve distribution: Very mildly diminished. 69M s/p REVISION RIGHT total hip replacement POD #2. -Transfuse 1U PRBC. -Rolled towel under right thigh (above knee) to relax Sciatic nerve. -Hip abduction pillow straps LOOSE, not tight. -Offload heals with rolled towels under ankles to avoid heel ulcers/pressure sores. -(+) RLE AFO splint for foot drop to prevent equinus contracture of ankle. -Pain control. -DVT PPx: -Chemical: ASA 81mg PO BID x 6 weeks. -Mechanical: SHARAD's, SCD's. -Diet. -Incentive spirometry q15 min. -PT/OT/Rehab, OOB. -WBAT RLE. -Continue neurontin. -f/u AM labs. -Diet as tolerated. -Care per medical hospitalist team. -Right hip precautions. -Discharge planning: f/u [facility] [place] [facility] 08/07/2019; call for appointment . -Will follow. Mina Sheppard MD (Orthopaedic Surgery).
[2019-08-02] MEDS: SODIUM CHLORIDE 1,000 ML IV SCH (17:24)
[2019-08-02] MEDS: DOCUSATE SODIUM 100 MG CAPSULE (FP) PO SCH (21:08)
[2019-08-02] MEDS: TAMSULOSIN HCL 0.4 MG CAP PO SCH (21:08)
[2019-08-02] MEDS: LACTOBACILLUS ACIDOPHILUS 1 TABLET PO SCH (21:08)
[2019-08-03] MEDS: GABAPENTIN 300 MG CAPSULE (FP) PO SCH ×3 (06:49→21:56)
[2019-08-03 08:51] LABS: BASO % 0.2 % (0-2.0); EOS % 3.3 % (0-4.5); HEMATOCRIT 28.5 % (35.4-49); HEMOGLOBIN 9.9 GM/dl (11.7-16.9); LYMPH % 11.1 % (8-40); MCH 30.4 pg (25.7-33.7); MCHC 34.6 g/dl (32.0-35.9); MEAN CELL VOLUME 87.8 fl (80-96); MEAN PLT VOLUME 8.2 fl (7.5-11.1); MONO % 6.5 % (3.8-10.2); NEUT % 78.9 % (42.8-82.8); PLATELET COUNT 278 K/MM3 (134-434); RBC 3.25 M/mm3 (4.00-5.60); RDW 13.4 % (11.9-15.9); WHITE BLOOD COUNT 7.1 K/mm3 (4.0-10.8)
[2019-08-03 08:59] LABS: ALBUMIN 2.5 g/dl (3.4-5.0); BILIRUBIN,TOTAL 0.6 mg/dl (0.2-1); CALCIUM 8.4 mg/dl (8.5-10); CREATININE 0.7 mg/dl (0.55-1.3); POTASSIUM 3.8 mmol/L (3.5-5.1); TOT PROT 5.5 g/dl (6.4-8.2)
--- NOTE | 2019-08-03 09:10 | PN ---
Physical Exam: SUBJECTIVE: Patient seen and examined. No signs or symptoms of distress OBJECTIVE: GENERAL: Awake, alert, and fully oriented, in no acute distress. LUNGS: Breath sounds equal, clear to auscultation bilaterally. No wheezes, and no crackles. No accessory muscle use. HEART: Regular rate and rhythm, S1 and S2 ABDOMEN: Soft, nontender, not distended, UPPER EXTREMITIES: 2+ pulses, warm, well-perfused. No cyanosis. No clubbing. No peripheral edema. LOWER EXTREMITIES: 2+ pulses, warm, well-perfused. No calf tenderness. No peripheral edema; RLE/RIGHT HIP surgical dressing c/d/i, no surrounding erythema, warmth, or fluctuance, +flex/extend toes, sensory intact; no calf tenderness NEUROLOGICAL: Cranial nerves II-XII intact. Normal speech. SKIN: Warm, dry, normal turgor, no rashes or lesions noted, normal capillary refill. Vital Signs Period Temp Pulse Resp BP Sys/Hills Pulse Ox Last 24 Hr 98.4 F-99.7 F 99-104 17-20 109-133/54-65 96-100 Laboratory Results - last 24 hr 08/02/19 08/02/19 08/02/19 09:50 09:50 09:50 WBC 7.8 RBC 2.84 L Hgb 8.5 L Hct 25.1 L D MCV 88.2 MCH 29.8 MCHC 33.8 RDW 13.0 Plt Count 246 MPV 7.7 Absolute Neuts (auto) 6.6 Neutrophils % 84.2 H Lymphocytes % 9.2 Monocytes % 5.8 Eosinophils % 0.6 Basophils % 0.2 Sodium 135 L Potassium 3.8 Chloride 104 Carbon Dioxide 25 Anion Gap 6 L BUN 11.0 Creatinine 0.8 Est GFR (CKD-EPI)AfAm 105.64 Est GFR (CKD-EPI)NonAf 91.15 Random Glucose 115 H Calcium 7.8 L Total Bilirubin AST ALT Alkaline Phosphatase B-Natriuretic Peptide 251.6 H Total Protein Albumin Blood Type Antibody Screen Crossmatch 08/02/19 08/02/19 08/03/19 10:30 10:35 06:00 WBC 7.1 RBC 3.25 L Hgb 9.9 L Hct 28.5 L MCV 87.8 MCH 30.4 MCHC 34.6 RDW 13.4 Plt Count 278 MPV 8.2 Absolute Neuts (auto) 5.6 Neutrophils % 78.9 Lymphocytes % 11.1 D Monocytes % 6.5 Eosinophils % 3.3 D Basophils % 0.2 Sodium Potassium Chloride Carbon Dioxide Anion Gap BUN Creatinine Est GFR (CKD-EPI)AfAm Est GFR (CKD-EPI)NonAf Random Glucose Calcium Total Bilirubin AST ALT Alkaline Phosphatase B-Natriuretic Peptide Total Protein Albumin Blood Type O POSITIVE O POSITIVE Antibody Screen Negative Crossmatch See Detail 08/03/19 06:00 WBC RBC Hgb Hct MCV MCH MCHC RDW Plt Count MPV Absolute Neuts (auto) Neutrophils % Lymphocytes % Monocytes % Eosinophils % Basophils % Sodium 140 Potassium 3.8 Chloride 101 Carbon Dioxide 28 Anion Gap 11 BUN 12.0 Creatinine 0.7 Est GFR (CKD-EPI)AfAm 111.60 Est GFR (CKD-EPI)NonAf 96.29 Random Glucose 111 H Calcium 8.4 L Total Bilirubin 0.6 AST 67 H ALT 51 Alkaline Phosphatase 76 B-Natriuretic Peptide Total Protein 5.5 L Albumin 2.5 L Blood Type Antibody Screen Crossmatch Active Medications Generic Name Dose Route Start Last Admin Trade Name Freq PRN Reason Stop Dose Admin Acetaminophen 650 mg 08/02/19 09:19 08/02/19 17:22 Tylenol - PO 650 mg Q4H PRN Administration FEVER Al Hydroxide/Mg Hydroxide 30 ml 07/30/19 13:02 Mylanta Oral Suspension - PO Q4H PRN DYSPEPSIA Aspirin 81 mg 07/30/19 22:00 08/02/19 21:08 Asa - PO 81 mg BID NAY Administration Docusate Sodium 300 mg 08/02/19 22:00 08/02/19 21:08 Colace - PO 300 mg HS NAY Administration Gabapentin 300 mg 07/31/19 22:00 08/03/19 06:49 Neurontin - PO 300 mg TID NAY Administration Lactobacillus Acidophilus 1 tab 07/30/19 22:00 08/02/19 21:08 Bacid - PO 1 tab HS NAY Administration Losartan Potassium 100 mg 07/31/19 10:00 08/01/19 10:47 Cozaar - PO 100 mg DAILY NAY Administration Magnesium Hydroxide 30 ml 07/30/19 13:02 Milk Of Magnesia - PO PRN PRN CONSTIPATION Ondansetron HCl 4 mg 07/30/19 13:02 07/31/19 22:27 Zofran Injection IVPUSH 4 mg Q6H PRN Administration NAUSEA Oxycodone HCl 5 mg 07/31/19 17:37 08/02/19 06:08 Roxicodone - PO 5 mg Q3H PRN Administration PAIN LEVEL 1-5 Oxycodone HCl 10 mg 07/31/19 17:37 08/01/19 02:11 Roxicodone - PO 10 mg Q3H PRN Administration PAIN LEVEL 6-10 Pantoprazole Sodium 40 mg 07/31/19 10:00 08/02/19 09:59 Protonix - PO Not Given DAILY NAY Tamsulosin HCl 0.4 mg 07/30/19 22:00 08/02/19 21:08 Flomax - PO 0.4 mg HS NAY Administration ASSESSMENT/PLAN: Assessment & Plan 69 year-old male with a PMH significant for HTN, HLD, BPH, and right hip OA now s/p right total hip replacement 07/[address] Sheppard. Degenerative joint disease of right hip -S/P THR on 07/30 management as per operating team --POD #4 --pain management per surgery --ASA 81mg BID --protonix --bowel regimen --incentive spirometry Hypertension --continue losartan Post OP Anemia -further drop in H/H type and screen Hb 8.5 Ortho recommended 2 units PRBC. Post transfusion. Currently Hgb 9.9 Post Op Tachycardia -currently 104 -Abnormal ECG -Ortho consulted Cardiology -Dr. Barraza -Dr. Hanson seen --Hold BP therapy unless hypertensive. Hyperlipidemia --not on statin therapy BPH --continue tamsulosin FEN Fluids: PO intake Electrolytes: replete as indicated Nutrition: regular diet DVT prophylaxis: OOB, ambulation, SCDs, TEDs, ASA 81mg BID for 6 weeks Physical therapy Dispo: --continues to require inpatient care. --Full code --Discharge Planning f/u [facility] [place] [facility] 08/07/2019; call for appointment . Visit type - Emergency Visit Emergency Visit: Yes ED Registration Date: 07/30/19 Care time: The patient presented to the Emergency Department on the above date and was hospitalized for further evaluation of their emergent condition. - New Patient This patient is new to me today: Yes Date on this admission: 08/03/19 - Critical Care Critical Care patient: No - Discharge Referral Referred to [facility] No
[2019-08-03] MEDS: PANTOPRAZOLE 40 MG TABLET (FP) PO SCH (09:41)
[2019-08-03] MEDS: ASPIRIN 81 MG CHEWABLE TABLETS PO SCH ×2 (09:41→21:56)
[2019-08-03] MEDS: ACETAMINOPHEN 325 MG TABLET (FP) PO PRN (09:42)
[2019-08-03] MEDS: oxyCODONE HCL 5 MG TABLET PO PRN ×2 (09:42→21:56)
--- NOTE | 2019-08-03 15:04 | CON.CARD ---
Consult Reason for Consultation:: Sinus tachy - History of Present Illness History of Present Illness: 69 M with HTN and is POD 2 hip replacement surgery. Post op had moderate anemia and noted to be tachycardic. No hypoxia, SOB, palpitations or chest pain. He is comfortable. No prior ho CAD or arrhythmia. - History Source History Provided By: Patient Limitations to Obtaining History: No Limitations - Past Medical History Cardio/Vascular: Yes: HTN - Alcohol/Substance Use Hx Alcohol Use: Yes (social) - Smoking History Smoking history: Former smoker Have you smoked in the past 12 months: No If you are a former smoker, when did you quit?: 1996 Home Medications - Allergies Allergies/Adverse Reactions: Allergies Allergy/AdvReac Type Severity Reaction Status Date / Time No Known Allergies Allergy Verified 07/22/19 17:31 - Home Medications Home Medications: Ambulatory Orders Ascorbic Acid [Vitamin C -] 1,000 mg PO BID 07/22/19 Cholecalciferol (Vitamin D3) [Vitamin D3] 2,000 unit PO DAILY 07/22/19 Cyanocobalamin [Vitamin B12 -] 3,000 mcg PO DAILY 07/22/19 L. Acidophilus/Pectin, [place] [Acidophilus Probiotic Capsule] 1 each PO HS 07/22 Losartan Potassium 100 mg PO DAILY 07/22/19 Multivitamin [Multiple Vitamins] 1 each PO DAILY 07/22/19 Tamsulosin HCl 0.4 mg PO HS 07/22/19 Ubidecarenone [Co Q-10] 100 mg PO HS 07/22/19 Vitamin B Complex/Folic Acid [Super B Maxi Complex Caplet] 0.4 mg PO BID Review of Systems - Review of Systems Constitutional: reports: No Symptoms Eyes: reports: No Symptoms HENT: reports: No Symptoms Neck: reports: No Symptoms Cardiovascular: reports: No Symptoms Respiratory: reports: No Symptoms Gastrointestinal: reports: No Symptoms Genitourinary: reports: No Symptoms Vital Signs: Vital Signs Temperature 98.6 F 08/03/19 14:00 Pulse Rate 92 H 08/03/19 14:00 Respiratory Rate 18 08/03/19 14:00 Blood Pressure 115/57 L 08/03/19 14:00 O2 Sat by Pulse Oximetry (%) 97 08/03/19 14:00 Constitutional: Yes: Well Nourished, No Distress Eyes: Yes: Conjunctiva Clear HENT: Yes: Atraumatic, Normocephalic Neck: Yes: Supple, Trachea Midline Respiratory: Yes: Regular, CTA Bilaterally Gastrointestinal: Yes: Normal Bowel Sounds, Soft Cardiovascular: Yes: Regular Rate and Rhythm JVD: No Carotid Bruit: No PMI: Non-Displaced Heart Sounds: Yes: S1, S2 Murmur: No: Systolic Murmur, Diastolic Murmur Extremities: Yes: WNL Edema: No Peripheral Pulses WNL: Yes - Other Data Labs, Other Data: CBC, BMP 08/03/19 06:00 08/03/19 06:[address] T changes. Problem List - Problems (1) Tachycardia determined by examination of pulse Code(s): R00.0 - TACHYCARDIA, UNSPECIFIED Assessment/Plan Asymptomatic sinus tachycardia possibly related to anemia and postop sympathetic surge. No specific therapy is indicated. Low probability for PE. Pt is post transfusions and expect may see improvement. Beta darlene or other AVN therapy is not indicated. Hold BP therapy unless hypertensive. Will see as needed.
[2019-08-03] MEDS: DOCUSATE SODIUM 100 MG CAPSULE (FP) PO SCH (21:55)
[2019-08-03] MEDS: LACTOBACILLUS ACIDOPHILUS 1 TABLET PO SCH (21:56)
[2019-08-03] MEDS: TAMSULOSIN HCL 0.4 MG CAP PO SCH (21:59)
--- NOTE | 2019-08-04 06:22 | DS ---
"Physical Exam: SUBJECTIVE: Patient seen and examined OBJECTIVE: Vital Signs Period Temp Pulse Resp BP Sys/Hills Pulse Ox Last 24 Hr 98.3 F-99.3 F 86-109 17-18 111-137/52-77 96-100 PHYSICAL EXAM GENERAL: Awake, alert, and fully oriented, in no acute distress. LUNGS: Breath sounds equal, clear to auscultation bilaterally. No wheezes, and no crackles. No accessory muscle use. HEART: Regular rate and rhythm, S1 and S2 ABDOMEN: Soft, nontender, not distended, UPPER EXTREMITIES: 2+ pulses, warm, well-perfused. No cyanosis. No clubbing. No peripheral edema. LOWER EXTREMITIES: 2+ pulses, warm, well-perfused. No calf tenderness. No peripheral edema; RLE/RIGHT HIP surgical dressing c/d/i, no surrounding erythema, warmth, or fluctuance, +flex/extend toes, sensory intact; no calf tenderness NEUROLOGICAL: Cranial nerves II-XII intact. Normal speech. SKIN: Warm, dry, normal turgor, no rashes or lesions noted, normal capillary refill. LABS Laboratory Results - last 24 hr 08/02/19 08/03/19 08/03/19 10:35 06:00 06:00 WBC 7.1 RBC 3.25 L Hgb 9.9 L Hct 28.5 L MCV 87.8 MCH 30.4 MCHC 34.6 RDW 13.4 Plt Count 278 MPV 8.2 Absolute Neuts (auto) 5.6 Neutrophils % 78.9 Lymphocytes % 11.1 D Monocytes % 6.5 Eosinophils % 3.3 D Basophils % 0.2 Sodium 140 Potassium 3.8 Chloride 101 Carbon Dioxide 28 Anion Gap 11 BUN 12.0 Creatinine 0.7 Est GFR (CKD-EPI)AfAm 111.60 Est GFR (CKD-EPI)NonAf 96.29 Random Glucose 111 H Calcium 8.4 L Total Bilirubin 0.6 AST 67 H ALT 51 Alkaline Phosphatase 76 Total Protein 5.5 L Albumin 2.5 L Blood Type O POSITIVE Antibody Screen Negative Crossmatch See Detail HOSPITAL COURSE: Date of Admission:07/30/19 Date of Discharge: 08/04/19 69 year-old male with a PMH significant for HTN, HLD, BPH, and right hip OA, s/ p right total hip replacement with Dr. Sheppard on 07/30. Post-op xray showed misplacement of the acetabular component. Underwent revision on 07/31. Post op course further complicated by tachycardia and mild hypotension, likely the result of post-operative anemia (pre op Hgb 13.1-->8.5). Patient was transfused 2 units with good response (Hgb 11.1) and resolution of tachycardia. Patient was discharged to home. I Stop Search Search Terms: jeannie hampton, 1950 Search Date: 08/04/2019 11:15:03 AM The Drug Utilization Report below displays all of the controlled substance prescriptions, if any, that your patient has filled in the last twelve months. The information displayed on this report is compiled from pharmacy submissions to the Department, and accurately reflects the information as submitted by the pharmacies. This report was requested by: Esther Sherwood | Reference #: [id number] There are no results for the search terms that you entered. This report was requested by: Esther Sherwood | Reference #: [id number] Prescriptions Dispensed in [place] There are no results for the search terms that you entered. Prescriptions Dispensed in [place] There are no results for the search terms that you entered. Minutes to complete discharge: 35 Discharge Summary Problems reviewed: Yes Reason For Visit: BILATERAL OSTEOARTHRITIS OF THE HIPS Current Active Problems Degenerative joint disease of right hip (Acute) HTN (hypertension) (Acute) Postoperative anemia (Acute) Tachycardia determined by examination of pulse (Acute) Condition: Improved - Instructions Diet, Activity, Other Instructions: Dr. Sheppard Discharge Instructions for Hip Replacement Post Operative Instructions Physical activity Physical Therapist will come to your home for the first 5 days. You will be set up with outpatient PT at your first post-operative visit. Use assistive devices for ambulation at all times. Weight bearing as tolerated on your surgical side. Wound care Leave your surgical dressing in place. Do not change the dressing until seen by your surgeon in the office. No baths or showers. Do not submerge your incision. Do not apply any ointments or lotions to your incision. Please call the office if your dressing is soiled/dirty or is falling off. Apply Graduated Compression Stockings (TEDS) to both lower extremities-remove daily for hygiene ONLY. Diet There are no dietary restrictions. Eat healthy, high-fiber foods. Drink 6 to 8 glasses of liquid each day. This will assist in keeping your bowels are regular. Pain management Any pain prescription medication ordered should be taken as prescribed for moderate to severe pain. Do not take additional Tylenol while taking Percocet. Posterior Hip Precautions: Do not cross the leg you had surgery on over your other leg. (Do not cross your legs.)Use an elevated toilet seat. Do not sit on low chairs or beds. Use purple pillow (abductor) when lying in bed. Take Aspirin 81 mg two times a day for a total of 6 weeks to prevent blood clots. Call Dr. Sheppard for any of the following: Severe pain not relieved by medication Fever of 101 or higher Excessive bleeding or drainage on dressing Inability to urinate If you experience chest pain or shortness of breath, please seek emergency care immediately. Please call the office at to confirm your post-op appointment for the week following surgery. 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 OXYCODONE 2. GABAPENTIN 3. MYCOLOG II TOPICAL CREAM FOR RASH; YOU MAY ALSO TAKE BENADRYL NEEDED TO HELP WITH ITCHING Referrals: Mina Sheppard MD [Staff Physician] - Disposition: VNS/HOME HEALTH CARE - Home Medications Comprehensive Discharge Medication List: Ambulatory Orders Ascorbic Acid [Vitamin C -] 1,000 mg PO BID 07/22/19 Cholecalciferol (Vitamin D3) [Vitamin D3] 2,000 unit PO DAILY 07/22/19 Cyanocobalamin [Vitamin B12 -] 3,000 mcg PO DAILY 07/22/19 L. Acidophilus/Pectin, [place] [Acidophilus Probiotic Capsule] 1 each PO HS 07/22 Losartan Potassium 100 mg PO DAILY 07/22/19 Multivitamin [Multiple Vitamins] 1 each PO DAILY 07/22/19 Tamsulosin HCl 0.4 mg PO HS 07/22/19 Ubidecarenone [Co Q-10] 100 mg PO HS 07/22/19 Vitamin B Complex/Folic Acid [Super B Maxi Complex Caplet] 0.4 mg PO BID Prescription Drug Monitoring Program (I-STOP) results: I-STOP reviewed and no issues identified This patient is new to me today: No Emergency Visit: No Critical Care patient: No - Discharge Referral Referred to [facility] Med P.C.: No"
[2019-08-04] MEDS: ACETAMINOPHEN 325 MG TABLET (FP) PO PRN (06:36)
[2019-08-04] MEDS: GABAPENTIN 300 MG CAPSULE (FP) PO SCH (06:36)
[2019-08-04] MEDS ORDERED: diphenhydrAMINE HCL 25 MG CAPSULE (FP) PO ONE (07:00)
--- NOTE | 2019-08-04 07:48 | PN ---
Progress Note (short form) - Note Progress Note: POD #5 s/p Rt FCO POD #4 s/p Revision right total hip replacement (all components) patient seen and examined at bedside. Patient states he is feeling better but is complaining of some numbness in the first two web spaces of his left foot. He has been OOB ambulating with PT and using the bathroom. He is tolerating his diet and denies any CP, SOB, N/V, fever chills, blurred vision or H/A. Vital Signs Temp 98.9 F 08/04/19 05:00 Pulse 92 H 08/04/19 05:00 Resp 19 08/04/19 05:00 BP 143/66 08/04/19 05:00 Pulse Ox 99 08/04/19 06:51 Intake & Output 08/03/19 08/03/19 08/04/19 11:59 23:59 11:59 Intake Total 500 Output Total 200 Balance 300 Intake: Oral 500 Output: Urine 200 Void 200 Other: Voiding Method Toilet Toilet Bowel Movement Yes Yes # Bowel Movements 1 2 CBC, BMP 08/04/19 07:05 08/04/19 07:05 PE Gen: A&Ox3, NAD Unlabored resp on RA RLE: Hip with some edema appropriate to status. All LE compartments soft, supple with minimal tenderness to palpation-compressible. Jumpstart dressing c/d /i. Able to move his toes but unable to dorsiflex foot, 4/ plantar flexion. B/L LE compartments soft, supple and non-tender with +PD pulses. 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 Now POD #4 s/p Revision of all components. -Rolled towel under right thigh (above knee) to relax Sciatic nerve. -Hip abduction pillow straps LOOSE, not tight. -Offload heals with rolled towels under ankles to avoid heel ulcers/pressure sores. -(+) RLE AFO splint for foot drop to prevent equinus contracture of ankle. -Pain control. -DVT PPx: -Chemical: ASA 81mg PO BID x 6 weeks. -Mechanical: SHARAD's, SCD's. -Diet. -Incentive spirometry q15 min. -PT/OT/Rehab, OOB. -WBAT RLE. -Continue neurontin. -Diet as tolerated. -Care per medical hospitalist team. -Right hip precautions. -Discharge planning for home today: f/u [facility] [place] [facility] 08/07/2019; call for appointment . -Will follow. Code(s): M16.11 - UNILATERAL PRIMARY OSTEOARTHRITIS, RIGHT HIP
[2019-08-04 08:00] LABS: BASO % 0.3 % (0-2.0); CALCIUM 8.5 mg/dl (8.5-10); CREATININE 0.8 mg/dl (0.55-1.3); EOS % 5.1 % (0-4.5); HEMATOCRIT 32.8 % (35.4-49); HEMOGLOBIN 11.1 GM/dl (11.7-16.9); LYMPH % 15.9 % (8-40); MCH 29.7 pg (25.7-33.7); MEAN CELL VOLUME 87.4 fl (80-96); MEAN PLT VOLUME 7.6 fl (7.5-11.1); NEUT % 71.7 % (42.8-82.8); PLATELET COUNT 341 K/MM3 (134-434); RBC 3.75 M/mm3 (4.00-5.60); RDW 13.6 % (11.9-15.9); WHITE BLOOD COUNT 7.5 K/mm3 (4.0-10.8)
[2019-08-04] MEDS: PANTOPRAZOLE 40 MG TABLET (FP) PO SCH (09:49)
[2019-08-04] MEDS: ASPIRIN 81 MG CHEWABLE TABLETS PO SCH (09:49)
[2019-08-04] MEDS: oxyCODONE HCL 5 MG TABLET PO PRN (09:49)
--- NOTE | 2019-08-04 13:24 | EKG ---
Test Reason : Blood Pressure : / mmHG Vent. Rate : 110 BPM Atrial Rate : 110 BPM P-R Int : 134 ms QRS Dur : 078 ms QT Int : 290 ms P-R-T Axes : 026 009 007 degrees QTc Int : 392 ms SINUS TACHYCARDIA POSSIBLE INFERIOR INFARCT (CITED ON OR BEFORE 31-JUL-2019) ABNORMAL ECG WHEN COMPARED WITH ECG OF 01-AUG-2019 11:26, NO SIGNIFICANT CHANGE WAS FOUND Confirmed by ZOË CARRILLO MD ([id number]) on 08/04/2019 1:23:29 PM Referred By: Mina Sheppard Confirmed By:ZOË CARRILLO MD
[2019-08-04 14:07] VITALS: BP 144/69; PULSE 103; TEMP 8.4
--- NOTE | 2019-08-04 17:20 | PATH ---
Surgical Pathology Report Patient Name: ELLEN COTTRELL Med. Rec. #: [id number] /Age/Gender: 1950 (Age: 69) / M Account: [id number] Location: [facility] Taken: 07/30/2019 Received: 07/30/2019 Reported: 08/04/2019 Physicians: Mina Sheppard M.D. Specimen(s) Received A: RIGHT FEMORAL HEAD B: RIGHT HIP HARDWARE Clinical History Right hip osteoarthritis Final Diagnosis A. BONE, FEMORAL HEAD, RIGHT, TOTAL HIP REPLACEMENT: BONE WITH DEGENERATIVE JOINT DISEASE. B. HIP HARDWARE, RIGHT, REMOVAL: SURGICAL HARDWARE. MACROSCOPIC DIAGNOSIS. Electronically Signed Cony Henderson M.D. Gross Description A. Received in formalin labeled "right femoral head," is a 5.5 x 4.3 x 4.0 cm femoral head. There are areas of eburnation present. The remaining articular surfaces are escobar-yellow and focally granular. The underlying trabecular bone is yellow and hard. Cementer Machine Applicator sections are submitted in one cassette, following decalcification. KWS/07/31/2019 B. Received fresh labeled "right hip hardware" are 4 pieces of surgical hardware comprised of: metal femoral shaft measuring 15 cm in length, femoral head measuring 3 cm in diameter and acetabular component with liner measuring 5 cm in diameter. No soft tissue identified, for gross examination only. JESSENIA/08/01/2019 shankar/07/31/2019
== END 2019-08-04 17:10 | disposition home health service (06) | DRG 467 ==
LOC: FM/S 05:57
PROVIDERS: ADMIT Orthopaedic Surgery Adult Reconstructive Orthopaedic Surgery; ATTEND Nurse Practitioner Acute Care
PROC: 0SP90JZ Removal of Synthetic Substitute from Right Hip Joint, Open Approach (ICD-10-PCS; 2019-07-31)
PROC: 0SR90JA Replacement of Right Hip Joint with Synthetic Substitute, Uncemented, Open Approach (ICD-10-PCS; principal; 2019-07-31 14:40)
PROC: 30233N1 Transfusion of Nonautologous Red Blood Cells into Peripheral Vein, Percutaneous Approach (ICD-10-PCS; 2019-08-02)
DX: T84.090A Other mechanical complication of internal right hip prosthesis, initial encounter (principal); I97.191 Other postprocedural cardiac functional disturbances following other surgery; M16.11 Unilateral primary osteoarthritis, right hip; Y83.8 Other surgical procedures as the cause of abnormal reaction of the patient, or of later complication, without mention of misadventure at the time of the procedure; M24.651 Ankylosis, right hip; I10 Essential (primary) hypertension; N40.0 Benign prostatic hyperplasia without lower urinary tract symptoms; R00.0 Tachycardia, unspecified; D64.9 Anemia, unspecified; I95.9 Hypotension, unspecified
CPT/HCPCS: 36415; 36430; 71045-TC-FY; 72170-TC-FY; 73523-TC-FY; 80048; 80053; 83735; 83880; 85025; 85027; 86850; 86900; 86901; 86922; 88300-TC; 88305-TC; 88311-TC; 93005; 93971-TC; 94760; 97116-GP; 97163-GP; J0131; J7030; P9038; P9058